=== PATIENT | male | born 1950 | race Caucasian/White ===

== ENCOUNTER → 2016-06-11 | Outpatient (CLI) | payer OTHER | END | disposition home or self-care (01) | LOC: PCVCCLINIC 10:50 | PROVIDERS: ATTEND Internal Medicine | DX: I25.10 Atherosclerotic heart disease of native coronary artery without angina pectoris (principal); E78.00 Pure hypercholesterolemia, unspecified; I10 Essential (primary) hypertension; I77.9 Disorder of arteries and arterioles, unspecified; E11.9 Type 2 diabetes mellitus without complications; F17.200 Nicotine dependence, unspecified, uncomplicated | CPT/HCPCS: 80061; 93005; G0463 ==

== ENCOUNTER → 2016-12-06 | Outpatient (CLI) | payer OTHER ==
--- NOTE | 2016-12-06 15:28 | PCVCIMAG ---
EXAM: AORTOILIAC DUPLEX INDICATION: Peripheral arterial disease Previous right superior gluteal artery stent placement. FINDINGS: AORTA: Suprarenal aorta measures maximum diameter of 2.5 cm. There is not a fusiform infrarenal aortic aneurysm. The infrarenal aorta measures maximum diameter of 2.2 cm. No aortic stenosis. RIGHT COMMON ILIAC ARTERY: Maximum diameter is 1.1 cm. No significant stenosis. RIGHT EXTERNAL ILIAC ARTERY: No significant stenosis. LEFT COMMON ILIAC ARTERY: Maximum diameter is 1.2 cm. Mild stenosis mid vessel. LEFT EXTERNAL ILIAC ARTERY: No significant stenosis. IMPRESSION: No abdominal aortic aneurysm. No aortoiliac stenosis seen. Satisfactory arterial flow remains in the right internal iliac artery. LOC:[id number]
== END | disposition home or self-care (01) ==
LOC: PCVCIMAG 14:17
PROVIDERS: ATTEND Internal Medicine
DX: I73.9 Peripheral vascular disease, unspecified (principal); I25.10 Atherosclerotic heart disease of native coronary artery without angina pectoris; I77.89 Other specified disorders of arteries and arterioles; I10 Essential (primary) hypertension; E78.00 Pure hypercholesterolemia, unspecified; F17.210 Nicotine dependence, cigarettes, uncomplicated; I65.23 Occlusion and stenosis of bilateral carotid arteries; E03.9 Hypothyroidism, unspecified; E11.9 Type 2 diabetes mellitus without complications; Z95.1 Presence of aortocoronary bypass graft; Z79.82 Long term (current) use of aspirin; Z79.84 Long term (current) use of oral hypoglycemic drugs; Z95.828 Presence of other vascular implants and grafts
CPT/HCPCS: 80061; 93005; 93978; G0463

== ENCOUNTER → 2017-06-07 | Outpatient (CLI) | payer OTHER | END | disposition home or self-care (01) | LOC: PCVCIMAG 09:14 | DX: I65.23 Occlusion and stenosis of bilateral carotid arteries (principal); I25.10 Atherosclerotic heart disease of native coronary artery without angina pectoris; I10 Essential (primary) hypertension; I77.9 Disorder of arteries and arterioles, unspecified; E78.5 Hyperlipidemia, unspecified; I73.9 Peripheral vascular disease, unspecified; F17.210 Nicotine dependence, cigarettes, uncomplicated; Z79.899 Other long term (current) drug therapy | CPT/HCPCS: 80061; 93005; 93880; G0463 ==

== ENCOUNTER → 2018-01-16 | Outpatient (CLI) | payer OTHER | END | disposition home or self-care (01) | LOC: PCVCCLINIC 11:19 | PROVIDERS: ATTEND Internal Medicine | DX: I25.10 Atherosclerotic heart disease of native coronary artery without angina pectoris (principal); I10 Essential (primary) hypertension; I65.23 Occlusion and stenosis of bilateral carotid arteries; E78.5 Hyperlipidemia, unspecified; I73.9 Peripheral vascular disease, unspecified; F17.210 Nicotine dependence, cigarettes, uncomplicated; G47.33 Obstructive sleep apnea (adult) (pediatric); Z79.82 Long term (current) use of aspirin; Z79.84 Long term (current) use of oral hypoglycemic drugs | CPT/HCPCS: 80061; 93005; G0463 ==

== ENCOUNTER → 2018-09-08 | Outpatient (CLI) | payer OTHER ==
[~2018-09-08] MED LIST: REGADENOSON 0.4 MG/5 ML DISP.SYRIN. IV ONE
--- NOTE | 2018-09-08 08:55 | PCVCIMAG ---
APPROVED REPORT Indications Stenosis Risk Factors Hyperlipidemia Doppler Spectral Velocity Analysis PSV / EDVPSV / EDV ECA (R) 99 / 12 cm/sECA (L) 109 / 13 cm/s dICA (R) 65 / 22 cm/sdICA (L) 55 / 15 cm/s Dawn (R) 70 / 21 cm/smICA (L) 79 / 21 cm/s pICA (R) 100 / 35 cm/spICA (L) 126 / 22 cm/s Bulb (R) 81 / 25 cm/sBulb (L) 37 / 12 cm/s dCCA (R) 72 / 21 cm/sdCCA (L) 70 / 18 cm/s mCCA (R) 60 / 19 cm/smCCA (L) 65 / 16 cm/s Vert (R) 27 / 7 cm/sVert (L) 34 / 10 cm/s ICA/CCA 1.39ICA/CCA 1.80 Basic Measurements Blood Pressure: Pulses: Right Left RightLeft Brachial(Sitting) 130/46jqSn894/76mmHgTemporal Real Time B-Mode Imaging Vert. (R)AntegradeVert. (L)Antegrade Findings The right carotid bulb has moderate calcified plaque. The right proximal internal carotid artery shows <40% stenosis. The right common carotid artery shows no significant stenosis. The right external carotid artery shows no significant stenosis. The left carotid bulb has moderate calcified plaque. The left proximal internal carotid artery shows <40% stenosis. The left common carotid artery shows no significant stenosis. The left external carotid artery shows no significant stenosis. Conclusion 1. Right internal carotid artery stenosis (<40%) 2. Left internal carotid artery stenosis (<40%) 3. Antegrade vertebral flow
--- NOTE | 2018-09-08 13:12 | PCVCIMAG ---
APPROVED REPORT Imaging Protocol: Rest Tc-99m/Stress Tc-99m 1 day Study performed: 09/08/2018 09:09:41 Indication: Dyspnea, CAD Patient Location: Out-Patient Stress Nurse: Cristiane Alatorre RN, Rosa Giraldo RN [place] Tech:MAG RappMT Ht: 5 ft 7 in Wt: 165 lbs BSA: 1.86 m2 HR: 80 bpm BP: 154/84 mmHg BMI: 25.84 Rhythm: Normal Sinus Rhythm Medical History Medical History: HTN, Hyperlipidemia, CVD, PVD, CAD, Current Smoker Medications: Amlodipine, ASA, Lipitor, Carvedilol, HCTZ, Metformin, Accupril Allergies: No known drug allergies Cardiac Risk Factors: Age Previous Cardiac Procedures: 2013 CABG Pretest Chest Pain Characteristics: No chest pain Exercise History: Sedentary Physical Disabilities: Hips Meds Held (24 hrs): Carvedilol Resting Data Rest SPECT myocardial perfusion imaging was performed in supine position 45 minutes following the intravenous injection of 10.7 mCi of Tc-99m Sestamibi. Time of rest injection: 0830 Date: 09/08/2018 Administration Route: IV Administration Site: Right AC Pharmacologic Stress Pharmacologic stress test was performed by injecting Regadenoson 0.4 mg IV push over 10-15 seconds immediately followed by the intravenous injection of 33.05002 mCi of Tc-99m Sestamibi. Time of stress injection: 1030 Date: 09/08/2018 Administration Route: IV Administration Site: Right AC Gated Stress SPECT was performed 45 minutes after stress injection. The images were gated to evaluate regional wall motion and calculate left ventricular ejection fraction. Stress Test Details Stress Test: Pharmacologic stress was paired with low level exercise. Reason for pharmacologic stress test: physical limitation, hip issues. HRMax Heart Rate (APMHR): 152 bpm Resting HR: 80 bpmTarget HR (85% APMHR): 129 bpm Max HR Achieved: 114 bpm % of APMHR: 75 Recovery HR: 88 bpm BP Resting BP: 154/84 mmHg Max BP: 160/80 mmHg Recovery BP: 144/71 mmHg ECG Resting ECG: Normal Sinus Rhythm Stress ECG: Sinus Tachycardia ST Change: Non-ischemic Arrhythmia: None Recovery ECG: Sinus Rhythm Clinical Reason for Termination: Completed protocol Stress Symptoms: Dyspnea Exercise duration: 4 min 0 sec Symptoms resolved with caffeine. Study Quality Artifact: Mild Soft tissue attenuation artifact Study Data Post stress, the left ventricular ejection was 67%.. SSS: 1 SRS: 2 SDS: 0 TID = 0.91. Perfusion There is a medium area of mildly reduced uptake in the apical segment of the anterior wall which is seen on the stress images as well as the resting images. This area thickens and moves normally and is most consistent with attenuation artifact. Wall Motion Normal left ventricular wall motion. Nuclear Conclusion ECG Findings: negative for ischemia Clinical Findings: non-diagnostic Nuclear Findings: negative for ischemia Exercise Capacity: not assessed Left Ventricular Function: normal This study is of low probability for inducible ischemia or prior infarct. Normal global and segmental LV systolic function. Artifact: Mild Soft tissue attenuation artifact
== END | disposition home or self-care (01) ==
LOC: PCVCIMAG 07:43
PROVIDERS: ATTEND Internal Medicine
DX: I65.23 Occlusion and stenosis of bilateral carotid arteries (principal); I25.10 Atherosclerotic heart disease of native coronary artery without angina pectoris; E78.5 Hyperlipidemia, unspecified; R06.00 Dyspnea, unspecified; F17.200 Nicotine dependence, unspecified, uncomplicated
CPT/HCPCS: 78452; 93017; 93880; A9500; J2785